=== PATIENT | female | born 1965 | race Caucasian/White ===

== ENCOUNTER → 2017-10-11 | Outpatient (CLI) | payer OTHER ==
--- NOTE | 2017-10-11 13:27 | XR ---
EXAM TYPE: LUMBAR SPINE X RAY SERIES COMPARISON: NONE HISTORY: Pain TECHNIQUE: 4 views are submitted. FINDINGS: Alignment is anatomic. The pedicles are intact. The transverse processes are intact. There is no s pondylolysis or spondylolisthesis. Hypertrophic spurring noted anteriorly at multiple levels. There is mild degenerative disc disease at L3-4, L4-5 and L5-S1 with mild facet arthropathy. IMPRESSION: 1. Multilevel mild degenerative disc disease.
== END | disposition home or self-care (01) ==
LOC: RADXRMAIN 13:06
PROVIDERS: ATTEND Internal Medicine
DX: M51.36 Other intervertebral disc degeneration, lumbar region (principal); M47.897 Other spondylosis, lumbosacral region
CPT/HCPCS: 72100

== ENCOUNTER → 2017-10-11 | Outpatient (CLI) | payer OTHER ==
--- NOTE | 2017-10-11 13:45 | BD ---
EXAMINATION TYPE: MG DEXA axial skeleton. DATE OF EXAM: 10/11/2017 COMPARISON: NONE CLINICAL HISTORY: M81.0 Osteoporosis Height: 5 FT 5 1/4 IN Weight: 212 FRAX RISK QUESTIONS: Alcohol (3 or more units per day): NO Family History (Parent hip fracture): NO Glucocorticoids (More than 3mos): NO (Ex: prednisone, prednisolone, methylprednisolone, dexamethasone, and hydrocortisone). History of Fracture in Adulthood: YES Secondary Osteoporosis: 1. Type 1 Diabetes: NO 2. Hyperthyroidism: NO 3. Menopause before 45: YES 4. Malnutrition: NO 5. Chronic liver disease: NO Rheumatoid Arthritis: NO Current Tobacco Use: NO RISK FACTORS HISTORY OF: Active: YES Postmenopausal woman: PART HYST AGE 39 MEDICATIONS: Prednisone or other steroids: STEROID DROP FOR EYE CONDITION How Long: MULTIPLE TIMES A YEAR FOR 30 YEARS DEFECT IN EYES Thyroid Medications: YES Which medication: SYNTHROID How Lon YEARS Additional Medications: SYNTHROID,OMEPRAZOLE, CALCIUM Additional History: HX OF THROID CANCER EXAM MEASUREMENTS: Bone mineral densitometry was performed using the [employer] System. Bone mineral density as measured about the Lumbar spine is: ----- L1-L4(G/cm2): 1.400 T Score Values are as follows: ----- L2: 1.9 ----- L3: 2.5 ----- L4: 1.2 ----- L1-L4: 1.8 BASELINE Bone mineral density about the R hip (g/cm2): 1.216 Bone mineral density about the L hip (g/cm2): 1.185 T Score values are as follows: -----R Neck: 1.3 -----L Neck: 1.1 -----R Total: 2.4 -----L Total: 2.0 BASELINE IMPRESSION: No evidence for osteoporosis or osteopenia NOTE: T-SCORE=SD OF THE YOUNG ADULT MEAN.
--- NOTE | 2017-10-11 14:18 | MM ---
Reason for exam: screening (asymptomatic). History: Patient history of other cancer. Physical Findings: A clinical breast exam by your physician is recommended on an annual basis and results should be correlated with mammographic findings. MG Screening Mammo w CAD Bilateral CC and MLO view(s) were taken. There are scattered fibroglandular densities. There is no discrete abnormality. ASSESSMENT: Negative, BI-RAD 1 RECOMMENDATION: Routine screening mammogram of both breasts in 1 year.
== END | disposition home or self-care (01) ==
LOC: RADBDWWP 12:21
PROVIDERS: ATTEND Internal Medicine
DX: Z12.31 Encounter for screening mammogram for malignant neoplasm of breast (principal); M81.0 Age-related osteoporosis without current pathological fracture
CPT/HCPCS: 77080; G0202; 72100

== ENCOUNTER → 2018-01-21 | Outpatient (CLI) | payer OTHER ==
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
== END | disposition home or self-care (01) ==
LOC: RADMRIMAIN 19:50
PROVIDERS: ATTEND Internal Medicine
DX: M51.26 Other intervertebral disc displacement, lumbar region (principal); M47.816 Spondylosis without myelopathy or radiculopathy, lumbar region
CPT/HCPCS: 72148

== ENCOUNTER 2018-10-29 07:53 | Day surgery (SDC) | payer BC, OTHER ==
[2018-10-25 08:56] VITALS: BMI 34.7
[~2018-10-29 07:53] MED LIST: LACTATED RINGERS 1,000 ML IV SCH
[2018-10-29 08:29] VITALS: TEMP 98.5
[2018-10-29] MEDS ORDERED: PROPOFOL 10 MG/ML 20 ML VIAL IV ONE (08:52)
--- NOTE | 2018-10-29 08:57 | P.GSHP ---
History of Present Illness H&P Date: 10/29/18 Chief Complaint: GERD This is a 53-year-old female who presents today for EGD. Patient has had history of GERD. Past Medical History Past Medical History: Eye Disorder, GERD/Reflux, Thyroid Disorder Additional Past Medical History / Comment(s): currently having blood with stools and constipation,states has pressure/pain feeling around kidneys,legally blind-Keratoconus History of Any Multi-Drug Resistant Organisms: None Reported Past Surgical History: Heart Catheterization, Hysterectomy, Orthopedic Surgery, Tubal Ligation Additional Past Surgical History / Comment(s): colonoscopy, nasal repair,laser surgery edis eyes,thyroidectomy. HAVING EGD 10/29/18 Past Anesthesia/Blood Transfusion Reactions: No Reported Reaction Additional Past Anesthesia/Blood Transfusion Reaction / Comment(s): no problems with prior blood transfusion Smoking Status: Never smoker - Past Family History Mother Family Medical History: Diabetes Mellitus, Hypertension, Renal Disease Father Family Medical History: Cancer, Hyperlipidemia Additional Family Medical History / Comment(s): lung Medications and Allergies Home Medications Medication Instructions Recorded Confirmed Type Calcium Carbonate/Vitamin D3 1 each PO DAILY 11/08/15 10/25/18 History [Calcium 600 + Vit D Tablet] Cholecalciferol [Vitamin D3] 2,000 unit PO DAILY 11/08/15 10/25/18 History Levothyroxine Sodium [Synthroid] 125 mcg PO QAM 11/08/15 10/29/18 History Multivitamins, Thera [Theragran] 1 each PO DAILY 11/08/15 10/25/18 History Omeprazole [PriLOSEC] 20 mg PO AC-BRKFST 11/08/15 10/29/18 History Ascorbic Acid [Vitamin C] 1,000 mg PO DAILY 10/25/18 10/25/18 History Allergies Allergy/AdvReac Type Severity Reaction Status Date / Time acetaminophen [From Tylenol] Allergy states Verified 10/25/18 08:48 "breaks out into sweat and passes out" corn Allergy Nausea & Verified 10/25/18 08:48 Vomiting & Diarrhea latex Allergy Rash/Hives Verified 10/25/18 08:48 Sulfa (Sulfonamide Allergy Rash/Hives Verified 10/25/18 08:48 Antibiotics) sulfamethoxazole Allergy Rash/Hives Verified 10/25/18 08:48 [From Bactrim] tomato Allergy Nausea & Verified 10/25/18 08:48 Vomiting trimethoprim [From Bactrim] Allergy Rash/Hives Verified 10/25/18 08:48 Surgical - Exam Vital Signs Temp Pulse Resp BP Pulse Ox 98.5 F 75 16 120/56 96 10/29/18 08:23 10/29/18 08:23 10/29/18 08:23 10/29/18 08:23 10/29/18 08:23 - General well developed, no distress - Eyes PERRL - ENT normal pinna - Neck no masses - Respiratory normal expansion - Cardiovascular Rhythm: regular - Abdomen Abdomen: soft, non tender Assessment and Plan Assessment: GERD. We'll perform EGD.
--- NOTE | 2018-10-29 09:06 | P.OP ---
Date of Procedure: 10/29/18 Preoperative Diagnosis: GERD Dysphagia Postoperative Diagnosis: Large hiatal hernia Antral gastritis Procedure(s) Performed: EGD Anesthesia: MAC Surgeon: Bunny Valenzuela Pathology: other (Antrum) Condition: stable Disposition: PACU Description of Procedure: The patient's placed on the endoscopy table in the lateral position. She received IV sedation. The gastric was placed oropharynx and passed in the esophagus and stomach. Scope was then placed through the pylorus. The first and second portion of the duodenum appeared normal. Scope was then brought back the antrum this. Mildly inflamed. A biopsies performed. Scope was then retroflexed and the remainder stomach appeared normal. There was a large hiatal hernia. The GE junction was at 34 cm. The distal esophagus appeared normal. The proximal esophagus. Normal. Scope was withdrawn for patient.
[2018-10-29 09:14] VITALS: RESP 18
[2018-10-29] MEDS ORDERED: IPRATROPIUM-ALBUTEROL 3 ML NEB INHALATION STA (09:27)
[2018-10-29 09:39] VITALS: BP 108/73
[2018-10-29 10:01] VITALS: PULSE 88
== END 2018-10-29 10:30 | disposition home or self-care (01) ==
LOC: ORWHC2ENDO 07:53
PROVIDERS: ATTEND Surgery
DX: K29.50 Unspecified chronic gastritis without bleeding (principal); K21.9 Gastro-esophageal reflux disease without esophagitis; E07.9 Disorder of thyroid, unspecified; K44.9 Diaphragmatic hernia without obstruction or gangrene; Z85.850 Personal history of malignant neoplasm of thyroid; Z79.899 Other long term (current) drug therapy; Z91.040 Latex allergy status; Z88.5 Allergy status to narcotic agent; Z88.2 Allergy status to sulfonamides; Z91.018 Allergy to other foods; Z79.890 Hormone replacement therapy
CPT/HCPCS: 94640; 88305; 43239; J2704

== ENCOUNTER 2018-10-30 07:23 | Day surgery (SDC) | payer BC, OTHER ==
[2018-10-25 09:10] VITALS: BMI 34.7
[~2018-10-30 07:23] MED LIST changes: +DEXAMETHASONE SOD PHOSPHATE 10 MG/ML 1 ML VIAL IV ONE; +HEPARIN SODIUM,PORCINE 5,000 UNIT/ML 1 ML VIAL SQ ONE; +LIDOCAINE 1% 20 ML VIAL (10MG/ML) FOR IV START INTRADERMA PRN; +MIDAZOLAM 2 MG/2 ML VIAL IV PRN; +SCOPOLAMINE 1.5MG/72HR PATCH TRANSDERM ONE; +ceFAZolin IN SWFI 2 GM/20 ML SYRINGE IVP ONE
[2018-10-30] MEDS ORDERED: IPRATROPIUM-ALBUTEROL 3 ML NEB INHALATION STA (08:26)
[2018-10-30] MEDS: ONDANSETRON 4 MG/2 ML VIAL IVP ONE ×2 (08:45→10:06)
--- NOTE | 2018-10-30 08:45 | P.GSHP ---
History of Present Illness H&P Date: 10/30/18 Chief Complaint: Right upper quadrant pain This a 53-year-old female second paternal quadrant pain. Patient's workup found have gallstones. She presents today for laparoscopic cholecystectomy. Past Medical History Past Medical History: Eye Disorder, GERD/Reflux, Thyroid Disorder Additional Past Medical History / Comment(s): currently having blood with stools and constipation,states has pressure/pain feeling around kidneys,legally blind-Keratoconus History of Any Multi-Drug Resistant Organisms: None Reported Past Surgical History: Heart Catheterization, Hysterectomy, Orthopedic Surgery, Tubal Ligation Additional Past Surgical History / Comment(s): colonoscopy, nasal repair,laser surgery edis eyes,thyroidectomy. HAVING EGD 10/29/18 Past Anesthesia/Blood Transfusion Reactions: No Reported Reaction Additional Past Anesthesia/Blood Transfusion Reaction / Comment(s): no problems with prior blood transfusion Smoking Status: Never smoker - Past Family History Mother Family Medical History: Diabetes Mellitus, Hypertension, Renal Disease Father Family Medical History: Cancer, Hyperlipidemia Additional Family Medical History / Comment(s): lung Medications and Allergies Home Medications Medication Instructions Recorded Confirmed Type Calcium Carbonate/Vitamin D3 1 each PO DAILY 11/08/15 10/30/18 History [Calcium 600 + Vit D Tablet] Cholecalciferol [Vitamin D3] 2,000 unit PO DAILY 11/08/15 10/30/18 History Levothyroxine Sodium [Synthroid] 125 mcg PO QAM 11/08/15 10/30/18 History Multivitamins, Thera [Theragran] 1 each PO DAILY 11/08/15 10/30/18 History Omeprazole [PriLOSEC] 20 mg PO AC-BRKFST 11/08/15 10/30/18 History Ascorbic Acid [Vitamin C] 1,000 mg PO DAILY 10/25/18 10/30/18 History Allergies Allergy/AdvReac Type Severity Reaction Status Date / Time acetaminophen [From Tylenol] Allergy states Verified 10/30/18 07:57 "breaks out into sweat and passes out" corn Allergy Nausea & Verified 10/30/18 07:57 Vomiting & Diarrhea latex Allergy Rash/Hives Verified 10/30/18 07:57 Sulfa (Sulfonamide Allergy Rash/Hives Verified 10/30/18 07:57 Antibiotics) sulfamethoxazole Allergy Rash/Hives Verified 10/30/18 07:57 [From Bactrim] tomato Allergy Nausea & Verified 10/30/18 07:57 Vomiting trimethoprim [From Bactrim] Allergy Rash/Hives Verified 10/30/18 07:57 Surgical - Exam Vital Signs Temp Pulse Resp BP Pulse Ox 97.1 F L 70 16 110/60 97 10/30/18 07:52 10/30/18 07:52 10/30/18 07:52 10/30/18 07:52 10/30/18 07:52 - General well developed, well nourished, no distress - Eyes PERRL - ENT normal pinna - Neck no masses - Respiratory normal expansion - Cardiovascular Rhythm: regular - Abdomen Abdomen: soft, non tender Assessment and Plan Assessment: Right quadrant pain Cholelithiasis Chronic cholecystitis We'll perform laparoscopic cholecystectomy.
[2018-10-30] MEDS ORDERED: PHENYLEPHRINE-0.9% NACL SYG 1 MG/10 ML SYRINGE ONE (09:06)
[2018-10-30] MEDS ORDERED: PROPOFOL 10 MG/ML 20 ML VIAL IV ONE (09:06)
[2018-10-30] MEDS ORDERED: SUCCINYLCHOLINE CHLORIDE 100 MG/5 ML SYR IV ONE (09:06)
[2018-10-30] MEDS ORDERED: KETOROLAC 30 MG/ML 1 ML VIAL ONE (09:06)
[2018-10-30] MEDS ORDERED: fentaNYL (PF) 50 MCG/ML 2 ML AMP ONE (09:06)
[2018-10-30] MEDS ORDERED: NEOSTIGMINE 1 MG/ML 10 ML VIAL ONE (09:06)
[2018-10-30] MEDS ORDERED: ROCURONIUM BROMIDE 10 MG/ML 10 ML VIAL IV ONE (09:06)
[2018-10-30] MEDS ORDERED: MIDAZOLAM 2 MG/2 ML VIAL ONE (09:06)
[2018-10-30] MEDS ORDERED: GLYCOPYRROLATE 0.2 MG/ML 2 ML VIAL ONE (09:06)
[2018-10-30] MEDS ORDERED: BUPIVACAIN-EPI 0.25%-1:200,000 30 ML VIAL SQ ONE ×2 (09:21→09:33)
[2018-10-30] MEDS: HYDROmorphone 0.5 MG/0.5 ML SYRINGE IVP PRN ×2 (10:06→10:29)
[2018-10-30 10:10] VITALS: TEMP 96.8
[2018-10-30 10:16] VITALS: RESP 16
--- NOTE | 2018-10-30 10:36 | P.OP ---
Date of Procedure: 10/30/18 Preoperative Diagnosis: Cholelithiasis Postoperative Diagnosis: Cholelithiasis Procedure(s) Performed: Laparoscopic cholecystectomy Anesthesia: BLANE Surgeon: Bunny Valenzuela Estimated Blood Loss (ml): 5 Pathology: other (Gallbladder) Condition: stable Disposition: PACU Description of Procedure: The patient was placed on the operating table. The patient received a general endotracheal tube anesthesia. The patients abdomen was prepped and draped in the usual sterile fashion. Through an infraumbilical stab incision, the fascia of the anterior abdominal wall was grasped with a pair of Kochers and then the Veress needle was placed in the peritoneal cavity. Position of the Veress needle was confirmed with positive drop test. The abdomen was then insufflated. After adequate insufflation, the 10 mm trocar was placed in the peritoneal cavity. Following this the laparoscope was placed in the peritoneal cavity. The patient was placed in the head-up, right side up position and then a 5 mm trocar was placed in the right lateral and right subcostal position under direct visualization. A 8 mm trocar was placed in the epigastric position. The gallbladder was grasped in the fundus and infundibulum. Traction on the gallbladder was placed in the lateral and the cephalad positions. The triangle of Calot was visualized.. The cystic duct was bluntly dissected until the union of the cystic duct and common bile duct was seen. The cystic duct was then divided and sealed with the Harmonic scissors. A PDS Endoloop was then placed throughout the cystic duct stump. The cystic artery divided and sealed with the Harmonic scissors. The gallbladder was then removed from the liver bed using Harmonic scissors. The gallbladder was then extracted through the epigastric port site. Operative field was checked for any bleeding spots and Harmonic scissors was used to coagulate the liver bed. The abdomen was irrigated. The trocars were removed. The skin was closed using interrupted 3-0 Vicryl suture. Dermabond dressing were applied. The patient tolerated the procedure well.
[2018-10-30 11:39] VITALS: BP 112/59; PULSE 50
== END 2018-10-30 12:38 | disposition home or self-care (01) ==
LOC: OR 07:23
PROVIDERS: ATTEND Surgery
DX: K80.10 Calculus of gallbladder with chronic cholecystitis without obstruction (principal); K21.9 Gastro-esophageal reflux disease without esophagitis; E07.9 Disorder of thyroid, unspecified; H18.609 Keratoconus, unspecified, unspecified eye; H54.8 Legal blindness, as defined in USA; Z80.1 Family history of malignant neoplasm of trachea, bronchus and lung; Z79.890 Hormone replacement therapy; Z79.899 Other long term (current) drug therapy; Z88.6 Allergy status to analgesic agent; Z91.040 Latex allergy status; Z88.2 Allergy status to sulfonamides; Z91.018 Allergy to other foods; Z91.09 Other allergy status, other than to drugs and biological substances
CPT/HCPCS: 94640; 88304; 47562; J2250; J1644; J1100; J2710; J2405; J3010; J1885; J2370; J0330; J2704; J1170

== ENCOUNTER → 2021-03-15 | Outpatient (CLI) | payer BC ==
--- NOTE | 2021-03-16 09:16 | XR ---
Lumbar spine HISTORY: Pain with numbness in legs 3 views lumbar spine correlated prior exam 10/11/2017 There is a slight spinal curvature. Lumbar vertebral bodies show preserved height. Bone mineralizatio n is mildly reduced. There is multilevel spondylosis. Loss of disc height is present at the intervert ebral levels. Sclerosis present in the posterior elements of the lower lumbar spine. There has been s ome progression compared to previous exam in the loss of disc height. IMPRESSION: Degenerative disc disease, osteopenia, facet arthropathy. Mild spinal curvature.
--- NOTE | 2021-03-16 09:20 | XR ---
Cervical spine HISTORY: Spondylosis, pain and numbness 3 views of the cervical spine There is multilevel facet arthropathy change. Loss of disc height is present at C6-7 with associated spondylosis. There is reversal the normal cervical lordosis. Cervical vertebral bodies show preserved height and bone mineralization. Prevertebral soft tissues are normal. Odontoid view is limited. IMPRESSION: Degenerative disc disease. Set arthropathy.
== END | disposition home or self-care (01) ==
LOC: RADXRMAIN 17:13
PROVIDERS: ATTEND Internal Medicine
DX: M51.36 Other intervertebral disc degeneration, lumbar region (principal); M50.323 Other cervical disc degeneration at C6-C7 level; M12.88 Other specific arthropathies, not elsewhere classified, other specified site; M85.88 Other specified disorders of bone density and structure, other site
CPT/HCPCS: 72040; 72100

== ENCOUNTER → 2021-09-02 | Outpatient (CLI) | payer BC ==
--- NOTE | 2021-09-02 15:36 | BD ---
EXAMINATION TYPE: Axial Bone Density DATE OF EXAM: 09/02/2021 COMPARISON: 10/11/2017 CLINICAL HISTORY: age related osteoporosis. Height: 65 IN Weight: 193 LBS FRAX RISK QUESTIONS: Family History (Parent hip fracture): YES MOTHER Secondary Osteoporosis: 3. Menopause before 45: PARTIAL HYST AGE 38 RISK FACTORS HISTORY OF: Active: YES Postmenopausal woman: PARTIAL HYST AGE 38 MEDICATIONS: Thyroid Medications: YES Which medication: Levothyroxine How Lon+ YEARS Additional Medications: CALCIUM, VIT D, LEVOTHYROXINE, CENTRUM SILVER, VIT C, OMEPRAZOLE EXAM MEASUREMENTS: Bone mineral densitometry was performed using the [employer]. Bone mineral density as measured about the Lumbar spine is: ----- L1-L4(G/cm2): 1.337 T Score Values are as follows: ----- L2: 1.3 ----- L3: 1.9 ----- L4: 0.9 ----- L1-L4: 1.3 Bone mineral density has: Decreased -4.0% since study of: 10/11/2017 Bone mineral density about the R hip (g/cm2): 1.128 Bone mineral density about the L hip (g/cm2): 1.131 T Score values are as follows: -----R Neck: 0.6 -----L Neck: 0.7 -----R Total: 1.7 -----L Total: 1.5 Bone mineral density has: Decreased -6.0% since study of: 10/11/2017 IMPRESSION: normal bone mineral density. NOTE: T-SCORE=SD OF THE YOUNG ADULT MEAN.
== END | disposition home or self-care (01) ==
LOC: RADBDWWP 07:04
PROVIDERS: ATTEND Internal Medicine
DX: Z78.0 Asymptomatic menopausal state (principal); Z79.899 Other long term (current) drug therapy
CPT/HCPCS: 77080

== ENCOUNTER 2023-04-21 10:24 | Emergency (ER) | payer BC ==
[2023-04-21] MEDS ORDERED: KETOROLAC 15 MG/ML 1 ML VIAL IVP STA (11:41)
[2023-04-21] MEDS ORDERED: SODIUM CHLORIDE 0.9% 1,000 ML IV STA (11:42)
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
[2023-04-21 12:14] LABS: Basophils % (A) 1 %; Eosinophils # (A) 0.3 k/uL (0-0.7); Eosinophils % (A) 5 %; HCT 34.3 % (34.0-46.0); Hypochromasia Slight; Lymphocytes # (A) 1.3 k/uL (1.0-4.8); Lymphocytes % (A) 28 %; MCH 29.3 pg (25.0-35.0); MCHC 32.1 g/dL (31.0-37.0); MCV 91.4 fL (80.0-100.0); Mean Platelet Volume 7.8; Monocytes # (A) 0.3 k/uL (0-1.0); Monocytes % (A) 7 %; Neutrophils # (A) 2.7 k/uL (1.3-7.7); Neutrophils % (A) 57 %; Platelet Count 300 k/uL (150-450); RBC 3.75 m/uL (3.80-5.40); RDW 13.6 % (11.5-15.5); WBC 4.7 k/uL (3.8-10.6)
[2023-04-21 12:24] LABS: Appearance,Urine Clear (Clear); Bilirubin,Urine Negative (Negative); Blood,Urine Trace (Negative); Color,Urine Yellow; Glucose,Urine (UA) Negative (Negative); Hyaline Casts,Urine 1 /lpf (0-2); Ketones,Urine Negative (Negative); Leukocyte Esterase,Urine Trace (Negative); Mucus,Urine Few /hpf; Nitrite,Urine Negative (Negative); PH, Urine 5.5 (5.0-8.0); Protein,Urine Negative (Negative); RBC,Urine 5 /hpf (0-5); Specific Gravity,Urine 1.025 (1.001-1.035); Squamous Epithelial Cell,Urine <1 /hpf (0-4); Urobilinogen,Urine <2.0 mg/dL (<2.0); WBC,Urine 6 /hpf (0-5)
[2023-04-21 12:29] LABS: ALT 57 U/L (4-34); AST 50 U/L (14-36); African American GFR (CKD) >90 (>60 ml/min/1.73 sqM); Albumin 3.6 g/dL (3.5-5.0); Alkaline Phosphatase 82 U/L (38-126); Anion Gap 4 mmol/L; Blood Urea Nitrogen 15 mg/dL (7-17); Calcium 8.4 mg/dL (8.4-10.2); Carbon Dioxide 29 mmol/L (22-30); Chloride 105 mmol/L (98-107); Glucose 87 mg/dL (74-99); Non-African American GFR(CKD) >90 (>60 ml/min/1.73 sqM); Potassium 4.1 mmol/L (3.5-5.1); Sodium 138 mmol/L (137-145); Total Bilirubin 0.3 mg/dL (0.2-1.3); Total Protein 6.9 g/dL (6.3-8.2)
[2023-04-21 12:31] LABS: Partial Thromboplastin Time 22.7 sec (22.0-30.0); Prothrombin Time 10.2 sec (9.0-12.0)
--- NOTE | 2023-04-21 13:35 | US ---
EXAMINATION TYPE: US kidneys/renal and bladder DATE OF EXAM: 04/21/2023 COMPARISON: NONE CLINICAL INDICATION: Female, 58 years old with history of Vaginal bleeding vs blood in urine; bleedin g EXAM MEASUREMENTS: Right Kidney: 9.7 x 4.7 x 3.3 cm Left Kidney: 10.9 x 4.9 x 4.1 cm Right Kidney: No hydronephrosis or masses seen Left Kidney: No hydronephrosis or masses seen Bladder: anechoic Bilateral Jets seen: no IMPRESSION: 1. Normal appearing renal ultrasound.
[2023-04-21 13:45] LABS: T4, Free (Free Thyroxine) 0.94 ng/dL (0.78-2.19)
--- NOTE | 2023-04-21 13:55 | US ---
EXAMINATION TYPE: US transvaginal DATE OF EXAM: 04/21/2023 COMPARISON: NONE CLINICAL INDICATION: Female, 58 years old with history of Pelvic pain and vaginal bleeding; Bleeding partial hysterectomy. TECHNIQUE: Transvaginal (TV). EXAM MEASUREMENTS: Uterus: Surgically absent cm Endometrial Stripe: Surgically absent cm 1. Uterus: Surgically absent 2. Endometrium: Surgically absent 3. Right Ovary: Obscured by overlying bowel gas 4. Left Ovary: Obscured by overlying bowel gas 5. Bilateral Adnexa: wnl 6. Posterior cul-de-sac: wnl 7. No abnormal fluid collections identified. IMPRESSION: 1. No suspicious pelvic collections post partial hysterectomy
[2023-04-21 14:54] VITALS: BP 108/68; PULSE 65; RESP 18; TEMP 97.7
--- NOTE | 2023-04-21 15:22 | CT ---
EXAMINATION TYPE: CT abdomen pelvis wo con DATE OF EXAM: 04/21/2023 COMPARISON: None HISTORY: right flank pain CT DLP: 941.8 mGycm Automated exposure control for dose reduction was used. TECHNIQUE: Helical acquisition of images was performed from the lung bases through the pelvis. FINDINGS: There is a partially consolidative airspace density in the left lower lobe suspicious for pneumonia. Clinical correlation is recommended. There is mild hazy density in the gastroesophageal junction. Prior surgery for hiatal hernia repair. There is characterize There are surgical absence of gallbladder. There is no organomegaly involving pancreas, spleen or adrenal. There are no renal calcifications or hydronephrosis. Caliber the abdominal aorta is normal. There is no pelvic mass or adenopathy. The osseous structures are intact. IMPRESSION: 1. Left lower lobe infiltrate suspicious for pneumonia and clinical correlation is recommended. 2. No renal calcifications or hydronephrosis. 3. 2 cm focal liver lesion not characterized with this technique. Statistically most likely represent s an hemangioma. 4. Cholecystectomy
[2023-04-21] MEDS ORDERED: ONDANSETRON 4 MG ODT STARTER PACK 2 TAB BTL PO STA (15:35)
== END 2023-04-21 15:47 | disposition home or self-care (01) ==
LOC: EC 10:24
DX: S31.41XA Laceration without foreign body of vagina and vulva, initial encounter (principal); K76.9 Liver disease, unspecified; J18.9 Pneumonia, unspecified organism; M54.9 Dorsalgia, unspecified; K21.9 Gastro-esophageal reflux disease without esophagitis; E07.9 Disorder of thyroid, unspecified; F41.9 Anxiety disorder, unspecified; F32.A Depression, unspecified; Z79.899 Other long term (current) drug therapy; X58.XXXA Exposure to other specified factors, initial encounter
CPT/HCPCS: 36415; 84439; 80053; 84443; 83605; 85025; 85610; 85730; 81001; 76830; 76770; 74176; 99284; S0119

== ENCOUNTER → 2023-05-18 | Outpatient (CLI) | payer BC ==
--- NOTE | 2023-05-18 21:24 | MR ---
EXAMINATION TYPE: MR liver wo/w con DATE OF EXAM: 05/18/2023 3:23 PM INDICATION: Patient age:Female; 58 years old; Reason for study: D18.03 HEMANGIOMA OF INTRA-ABDOMINAL STRUCTURES; [facility]. Hemangioma of liver COMPARISON: MRCP 09/20/2018 TECHNIQUE: Multiplanar multi-sequence imaging was performed without contrast. Post contrast imaging was performed. Post IV contrast subtraction images were also submitted for review. IV Contrast: 8.5 cc Gadavist FINDINGS: LOWER CHEST: No gross irregularity. ABDOMEN Liver: Signal loss on in phase chemical shift imaging. Right hepatic lobe segment 7 lesion 2.5 x 2.2 cm as well as a segment 6 lesion measuring 15 x 12 mm a re predominantly high T2 low T1 signal. Both of these observations demonstrate progressive filling in on delayed imaging some of which is nod ular and discontinuous. This persists on delayed imaging. No observation that needs HCC criteria. Gallbladder and Bile ducts: Unremarkable. Pancreas: Unremarkable. Spleen: Signal loss on in phase chemical shift imaging. Adrenal glands: Unremarkable. Kidneys: Unremarkable. Stomach and Bowel: Unremarkable as visualized. Peritoneum: No evidence of pneumoperitoneum or free fluid. Vasculature: Unremarkable. No aortic aneurysm. Musculoskeletal: The osseous structures appear intact. Lymph Nodes: No gross evidence for lymphadenopathy. Abdominal wall: Unremarkable. IMPRESSION: 1. The 2 hepatic observations were present dating back to at least 2017 and demonstrate progressive filling and are most compatible with hemangioma. No suspicious observations that meet HCC criteria. 2. Iron deposition within the liver and spleen suggested.
== END | disposition home or self-care (01) ==
LOC: RADMRIMAIN 14:20
PROVIDERS: ATTEND Internal Medicine
DX: D18.03 Hemangioma of intra-abdominal structures (principal)
CPT/HCPCS: 74183; A9585

== ENCOUNTER → 2023-08-21 | Outpatient (CLI) | payer BC ==
[2023-08-21 14:02] LABS: Appearance,Urine Clear (Clear); Color,Urine Yellow; PH, Urine 5.5 (5.0-8.0); Specific Gravity,Urine >1.030 (1.001-1.035)
[2023-08-21 14:03] LABS: Bilirubin,Urine Negative (Negative); Blood,Urine Negative (Negative); Glucose,Urine (UA) Negative (Negative); Ketones,Urine Negative (Negative); Leukocyte Esterase,Urine Moderate (Negative); Nitrite,Urine Negative (Negative); Protein,Urine Trace (Negative); Urobilinogen,Urine <2.0 mg/dL (<2.0)
[2023-08-21 14:53] LABS: Mucus,Urine Many /hpf; RBC,Urine <1 /hpf (0-5); Squamous Epithelial Cell,Urine <1 /hpf (0-4); WBC,Urine 3 /hpf (0-5)
[2023-08-21 15:35] LABS: Basophils # (A) 0.04 X 10*3/uL (0.00-0.10); Basophils % (A) 0.9 %; Eosinophils # (A) 0.35 X 10*3/uL (0.04-0.35); Eosinophils % (A) 7.5 %; HCT 40.5 % (37.2-46.3); HGB 13.2 d/dL (12.0-15.0); Lymphocytes # (A) 1.42 X 10*3/uL (0.90-5.00); Lymphocytes % (A) 30.3 %; MCH 28.4 pg (27.0-32.0); MCHC 32.6 d/dL (32.0-37.0); MCV 87.3 FL (80.0-97.0); Mean Platelet Volume 10.9 FL (9.5-12.2); Monocytes # (A) 0.31 X 10*3/uL (0.20-1.00); Monocytes % (A) 6.6 %; NRBC Per 100 WBC 0 X 10*3/uL (0.00-0.01); Neutrophils # (A) 2.55 X 10*3/uL (1.80-7.70); Neutrophils % (A) 54.5 %; Platelet Count 310 X 10*3/uL (140-440); RBC 4.64 X 10*6/uL (4.10-5.20); WBC 4.68 X 10*3/uL (4.50-10.00)
[2023-08-21 21:29] LABS: % Iron Saturation 13.89 (12.00-45.00); Blood Urea Nitrogen 8.8 mg/dL (9.0-27.0); Chloride 103 mmol/L (96-109); Chol/HDL Ratio 2.81 Ratio; Glucose 79 mg/dL (70-110); Iron 55 UG/DL (50-170); LDL Cholesterol,Calculated 92.1 mg/dL (0.0-131.0); Magnesium 2.1 mg/dL (1.5-2.4); Potassium 4.8 mmol/L (3.5-5.5); Sodium 143 mmol/L (135-145); Total Iron Binding Capacity 396 UG/DL (228-460)
[2023-08-21 21:30] LABS: ALT 14 U/L (8-44); AST 20 U/L (13-35); Albumin 3.8 d/dL (3.8-4.9); Albumin/Globulin Ratio 1.31 Ratio (1.60-3.17); Alkaline Phosphatase 89 U/L (41-126); Calcium 9.3 mg/dL (8.7-10.3); Globulin 2.9 d/dL (1.6-3.3); Total Bilirubin 0.2 mg/dL (0.3-1.2); Total Protein 6.7 d/dL (6.2-8.2)
== END | disposition home or self-care (01) ==
LOC: LABWHC1 11:24
PROVIDERS: ATTEND Internal Medicine
DX: Z00.00 Encounter for general adult medical examination without abnormal findings (principal); E83.10 Disorder of iron metabolism, unspecified; G62.9 Polyneuropathy, unspecified; E03.9 Hypothyroidism, unspecified; K21.00 Gastro-esophageal reflux disease with esophagitis, without bleeding
CPT/HCPCS: 36415; 80053; 80061; 81001; 82607; 82728; 82746; 83036; 83540; 83550; 83735; 84439; 84443; 85025

== ENCOUNTER 2024-10-14 09:20 | Day surgery (SDC) | payer BC ==
[2024-10-14] MEDS ORDERED: LIDOCAINE 1% (10MG/ML) FOR IV START INTRADERMA PRN (09:40)
[2024-10-14 09:45] VITALS: RESP 16; TEMP 97
[2024-10-14] MEDS: LACTATED RINGERS 1,000 ML IV SCH (09:59)
[2024-10-14] MEDS: IV FLUID CONTINUATION 1,000 ML IV ONE ×2 (09:59→10:23)
[2024-10-14] MEDS ORDERED: PROPOFOL 10 MG/ML 20 ML VIAL IV ONE (10:24)
--- NOTE | 2024-10-14 10:39 | P.PCN ---
Date of Procedure: 10/14/24 Procedure(s) Performed: BRIEF HISTORY: Patient is a 59-year-old pleasant white female scheduled for an elective colonoscopy as a part of for colon cancer. PROCEDURE PERFORMED: Colonoscopy. PREOPERATIVE DIAGNOSIS: Screening for colon cancer. IV sedation per Anesthesia. PROCEDURE: After informed consent was obtained, the patient, was brought into the endoscopy unit. IV sedation was administered by Anesthesia under continuous monitoring. Digital rectal examination was normal. Initially the Olympus CF-160 flexible video colonoscope was then inserted in the rectum, gradually advanced into the cecum without any difficulty. Careful examination was performed as the scope was gradually being withdrawn. Ileocecal valve and the appendiceal orifice were visualized and appeared normal. Prep was excellent. Mucosa of the cecum, ascending colon, transverse colon, descending colon, sigmoid colon, and rectum appeared normal. Katter sigmoid diverticulosis. Retroflexion was performed in the rectum and no lesions were seen. The patient tolerated the procedure well. IMPRESSION: Normal-appearing colon from rectum to cecum no evidence of colorectal neoplasia. Scattered sigmoid diverticulosis. RECOMMENDATIONS: Findings of this examination were discussed with the patient as well as her family. She was advised to have repeat screening colonoscopy in 10 years.
[2024-10-14 11:19] VITALS: BP 111/73; PULSE 63
== END 2024-10-14 11:37 | disposition home or self-care (01) ==
LOC: ORWHC2ENDO 09:20
PROVIDERS: ATTEND Internal Medicine Gastroenterology
DX: Z12.11 Encounter for screening for malignant neoplasm of colon (principal); K57.30 Diverticulosis of large intestine without perforation or abscess without bleeding; E03.9 Hypothyroidism, unspecified; M32.9 Systemic lupus erythematosus, unspecified; G43.909 Migraine, unspecified, not intractable, without status migrainosus; K21.9 Gastro-esophageal reflux disease without esophagitis; Z85.850 Personal history of malignant neoplasm of thyroid; Z91.040 Latex allergy status; Z88.2 Allergy status to sulfonamides; Z88.6 Allergy status to analgesic agent; Z88.1 Allergy status to other antibiotic agents; Z79.890 Hormone replacement therapy; Z79.899 Other long term (current) drug therapy
CPT/HCPCS: 45378